=== PATIENT | male | born 1995 | race Caucasian/White ===

== ENCOUNTER 2019-09-05 20:48 | Emergency (ER) | payer BC ==
--- NOTE | 2019-09-05 23:11 | EDM.PDOC ---
ED HPI GENERAL MEDICAL PROBLEM - General Chief Complaint: Respiratory Problem Stated Complaint: CHEST PAIN,SOB,COUGHING UP BLOOD Time Seen by Provider: 09/05/19 21:11 Source of Information: Reports: Patient History Limitations: Reports: No Limitations - History of Present Illness INITIAL COMMENTS - FREE TEXT/NARRATIVE: chief complaint: cough this is a 24 year old male presents to the ER with complaints of sinus congestion and cough for the past 2 to 4 weeks. reports swollen neck glance. intermittent fever and chills. denies any sick contacts. 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 reports no other employees are ill . Onset: Gradual Duration: Week(s): (2-4 weeks of sinus congestion and cough. swollen glan) Location: Reports: Neck, Chest Quality: Reports: Ache, Burning (chest) Severity: Mild Improves with: Reports: None Worsens with: Reports: None Context: Reports: Other (illness for the past 2 to 4 weeks.) Associated Symptoms: Reports: Chest Pain, Cough, Fever/Chills, Other (sore throat) Middle Chest Pain Score (Numeric/FACES): 3 - Related Data Allergies Allergy/AdvReac Type Severity Reaction Status Date / Time amoxicillin Allergy Swelling Verified 09/05/19 21:24 Home Meds: Home Meds Amphetamine/Dextroamphetamine [Adderall] 5 mg PO DAILY 09/05/19 [History] Past Medical History Neurological History: Reports: Concussion Psychiatric History: Reports: ADHD, Anxiety Social & Family History - Family History Family Medical History: Noncontributory - Tobacco Use Smoking Status *Q: Former Smoker Used Tobacco, but Quit: Yes Month/Year Tobacco Last Used: april 2019 Second Hand Smoke Exposure: No - Caffeine Use Caffeine Use: Reports: Coffee, Energy Drinks, Soda, Tea - Recreational Drug Use Recreational Drug Use: No - Living Situation & Occupation Living situation: Reports: Single Occupation: Employed ED ROS GENERAL - Review of Systems Review Of Systems: See Below Constitutional: Reports: Fever, Chills, Malaise HEENT: Reports: Sinus Problem, Throat Pain Respiratory: Reports: Pleuritic Chest Pain, Cough Cardiovascular: Reports: No Symptoms Endocrine: Reports: No Symptoms GI/Abdominal: Reports: No Symptoms : Reports: No Symptoms Musculoskeletal: Reports: No Symptoms Neurological: Reports: No Symptoms Psychiatric: Reports: No Symptoms Hematologic/Lymphatic: Reports: No Symptoms Immunologic: Reports: No Symptoms ED EXAM, GENERAL - Physical Exam Exam: See Below Exam Limited By: No Limitations General Appearance: Alert, WD/WN, No Apparent Distress Eye Exam: Bilateral Eye: EOMI, PERRL Ears: Normal External Exam, Normal Canal, Hearing Grossly Normal, Normal TMs Nose: Other (frontal and maxillary pain and tenderness, turbinates raw and inflammed, post nasal drip) Throat/Mouth: Inflammation (tonsils 3 + bilateral, scant exudate is noted) Head: Atraumatic, Normocephalic Neck: Supple, Non-Tender, Full Range of Motion, Lymphadenopathy (R), Lymphadenopathy (L) Respiratory/Chest: No Respiratory Distress, Lungs Clear, Normal Breath Sounds, No Accessory Muscle Use, Chest Non-Tender Cardiovascular: Regular Rate, Rhythm, No Murmur Peripheral Pulses: 2+: Radial (L), Radial (R) GI/Abdominal: Normal Bowel Sounds, Soft, Non-Tender, No Organomegaly, No Distention, No Abnormal Bruit, No Mass (Male) Exam: Deferred Rectal (Males) Exam: Deferred Back Exam: Normal Inspection, Full Range of Motion, NT Extremities: Normal Inspection, Normal Range of Motion, Non-Tender, No Pedal Edema, Normal Capillary Refill Neurological: No Motor/Sensory Deficits Psychiatric: Normal Affect, Normal Mood Skin Exam: Warm, Dry, Intact, Normal Color, No Rash Lymphatic: Adenopathy Course - Vital Signs Last Recorded V/S: Last Vital Signs Temp 36.9 C 09/05/19 21:24 Pulse 83 09/05/19 21:24 Resp 16 09/05/19 21:24 BP 149/93 H 09/05/19 21:24 Pulse Ox 95 09/05/19 21:24 - Orders/Labs/Meds Orders: Active Orders 24 hr Category Date Time Status CULTURE STREP A CONFIRMATION [] Stat Lab 09/05/19 21:41 Results STREP SCRN A RAPID W CULT CONF [RM] Stat Lab 09/05/19 21:41 Results - Re-Assessments/Exams Free Text/Narrative Re-Assessment/Exam: influenza A&B are both negative Rapid strep negative - awaiting culture chest x ray is negative plan: reveiw with Bong, labs are negative, but due to the tonsils with exudate. sinusitis for greater thatn 10 days will treat with Zithromax and Robitussin Ac. Work slip given for tonight. Agrees with plan of care. Departure - Departure Time of Disposition: 23:20 Disposition: Home, Self-Care 01 Condition: Good Clinical Impression: Sinusitis, Exudative tonsillitis, Cough - Discharge Information *PRESCRIPTION DRUG MONITORING PROGRAM REVIEWED*: Not Applicable *COPY OF PRESCRIPTION DRUG MONITORING REPORT IN PATIENT LARON: Not Applicable Instructions: Tonsillitis, [id number], Cough, Adult, [id number], Sinusitis , Adult, [id number] Referrals: PCP,None [Primary Care Provider] - Forms: ED Department Discharge, ED Return to Work/School Form Care Plan Goals: Tonsillitis, Sinusitis with cough -Zithromax 250mg take two tablet day then one tablet daily x 4 days -Robitussin AC 10ml every 4 hours as needed for painful cough -rest -push fluids -work slip for today Return to Clinic or ER if not improved or symptoms worsen. Sepsis Event Note - Evaluation Sepsis Screening Result: No Definite Risk - Focused Exam Date Exam was Performed: 09/06/19 Time Exam was Performed: 20:32 - Problem List & Annotations (1) Exudative tonsillitis SNOMED Code(s): 79944618, 846602516 Code(s): J03.90 - ACUTE TONSILLITIS, UNSPECIFIED Status: Acute (2) Sinusitis SNOMED Code(s): 54499243 Code(s): J32.9 - CHRONIC SINUSITIS, UNSPECIFIED Status: Acute (3) Cough SNOMED Code(s): 87116096 Code(s): R05 - COUGH Status: Acute - My Orders Last 24 Hours: My Active Orders 09/05/19 21:41 CULTURE STREP A CONFIRMATION [RM] Stat STREP SCRN A RAPID W CULT CONF [RM] Stat - Assessment/Plan Last 24 Hours: My Active Orders 09/05/19 21:41 CULTURE STREP A CONFIRMATION [RM] Stat STREP SCRN A RAPID W CULT CONF [RM] Stat Plan: Tonsillitis, Sinusitis with cough -Zithromax 250mg take two tablet day then one tablet daily x 4 days -Robitussin AC 10ml every 4 hours as needed for painful cough -rest -push fluids -work slip for today Return to Clinic or ER if not improved or symptoms worsen.
--- NOTE | 2019-09-06 09:11 | CR ---
CHEST: 2 view CLINICAL HISTORY:Cough COMPARISON:None FINDINGS: The heart size, pulmonary vascular and hilar structures are normal. No infiltrate effusion or pneumothorax is seen. IMPRESSION: No acute cardiopulmonary process.
== END 2019-09-05 23:21 | disposition home or self-care (01) ==
LOC: JP.ED 20:48
DX: J32.9 Chronic sinusitis, unspecified (principal); J03.90 Acute tonsillitis, unspecified; Z88.0 Allergy status to penicillin
CPT/HCPCS: 71046; 71046-26; 87081; 87804; 87804-59; 87880-QW; 99285-25